=== PATIENT | male | born 1975 | race Caucasian/White ===

== ENCOUNTER 2023-07-22 00:59 | Day surgery (SDC) | payer BC, SELFPAY ==
[2023-05-25 14:47] VITALS: BMI 28.5
--- NOTE | 2023-06-08 15:26 | PM.HPGS ---
History of Present Illness History of Present Illness Consent: Risks, benefits, and alternatives have been discussed and questions answered. Patient agrees to proceed with procedure. Chief complaint: neoplasm screening Narrative: Moody Wilson is a 47 year old male referred for colon cancer screening. [facility] Past Medical History Medical History Acute left-sided low back pain without sciatica BMI 28.0-28.9,adult Dietary counseling and surveillance (01/03/19) Encounter for general adult medical examination without abnormal findings Encounter for other specified surgical aftercare Encounter for screening for diabetes mellitus Hair loss Herniated intervertebral disc of lumbar spine Hypothyroidism, unspecified Left inguinal hernia Left knee pain Mixed hyperlipidemia Screening for prostate cancer Family History Family History Father Hypertension Pancreatic cancer Mother No problems noted. Sibling No problems noted. Social History Social History Smoking status: Never smoker Second hand tobacco smoke exposure: No Alcohol intake: current Drinks per week: 6 Substance use: never Substance use type: does not use Lack of Transportation: No Lack of Food: Never True Current Housing: I Have Housing Concerned About Future Housing: No Difficulty Paying Gas/Electric Bills: No Difficulty Paying for Meds: No Currently Unemployed: No Education: Bachelor's Degree Difficulty w/ Childcare or Family Care: No Living arrangements: with family Occupation/Education: occupation Additional occupation/education comments: [employer]. Gender identity (if verbalized by the patient): Male Spiritual care concerns: No Meds Home Medications and Allergies Home Medications Medication Instructions Recorded Confirmed Type levothyroxine 75 mcg tablet 75 mcg PO DAILY #90 tabs 04/19/23 05/25/23 Rx (Synthroid) Allergies Allergy/AdvReac Type Severity Reaction Status Date / Time No Known Allergies Allergy Verified 03/01/23 07:53 Assessment and Plan Assessment and plan (1) Screen for colon cancer: Code(s): Z12.11 - Encounter for screening for malignant neoplasm of colon Status: Acute Assessment and Plan: Colonoscopy with possible biopsy or polypectomy or cautery or injection of substances.
[2023-07-09 13:15] VITALS: BMI 28.0
--- NOTE | 2023-07-21 15:13 | P.HP_ITS ---
History of Present Illness History of Present Illness Consent: Risks, benefits, and alternatives have been discussed and questions answered. Patient agrees to proceed with procedure. Chief complaint: neoplasm screening Narrative: Moody Wilson is a 47 year old male Was referred for colon cancer screening. Review of Systems Review of Systems: All systems reviewed & are unremarkable except as noted in HPI and below PMFSH Past Medical History Medical History Acute left-sided low back pain without sciatica BMI 28.0-28.9,adult Dietary counseling and surveillance (01/03/19) Encounter for general adult medical examination without abnormal findings Encounter for other specified surgical aftercare Encounter for screening for diabetes mellitus Hair loss Herniated intervertebral disc of lumbar spine Hypothyroidism, unspecified Left inguinal hernia Left knee pain Mixed hyperlipidemia Screening for prostate cancer Family History Family History Father Hypertension Pancreatic cancer Mother No problems noted. Sibling No problems noted. Social History Social History Smoking status: Never smoker Second hand tobacco smoke exposure: No Alcohol intake: current Drinks per week: 6 Substance use: never Substance use type: does not use Lack of Transportation: No Lack of Food: Never True Current Housing: I Have Housing Concerned About Future Housing: No Difficulty Paying Gas/Electric Bills: No Difficulty Paying for Meds: No Currently Unemployed: No Education: Bachelor's Degree Difficulty w/ Childcare or Family Care: No Living arrangements: with family Occupation/Education: occupation Additional occupation/education comments: [employer]. Gender identity (if verbalized by the patient): Male Spiritual care concerns: No Meds Home Medications and Allergies Home Medications Medication Instructions Recorded Confirmed Type levothyroxine 75 mcg tablet 75 mcg PO DAILY #90 tabs 07/20/23 07/22/23 Rx (Synthroid) Allergies Allergy/AdvReac Type Severity Reaction Status Date / Time No Known Allergies Allergy Verified 07/22/23 08:43 Exam Resp: Auscultation: clear to auscultation bilaterally Cardio: Rate: regular rate Rhythm: regular rhythm GI: GI Palp: Yes Soft to palpation and No Tenderness to palpation present (GI) Assessment and Plan Assessment and plan (1) Screen for colon cancer: Code(s): Z12.11 - Encounter for screening for malignant neoplasm of colon Status: Acute Assessment and Plan: Colonoscopy with possible biopsy or polypectomy or cautery or injection of substances.
[2023-07-22 08:44] VITALS: BP 128/72; PULSE 64; RESP 16; TEMP 36.3; O2SAT 99; BMI 29.3
[2023-07-22] MEDS: LACTATED RINGERS 1,000 ML 150 ML IV CONT (08:52)
--- NOTE | 2023-07-22 09:15 | WPDANESEPPF ---
Anes - Initial Pre Proc Eval Procedure: Operation Date: 07/22/23 10:00 Proposed Procedures p Screening Colonoscopy - Oscar Hernandez MD Date/Time: 07/22/23 09:15 Surgeon: Oscar Hernandez MD Pre Op Diagnosis: neoplasm screening Patient Data Age: 47 Gender: M Height: 1.83 m Weight: 98.1 kg Last Vital Signs Temp 97.4 F L 07/22/23 08:44 Pulse 64 07/22/23 08:44 Resp 16 07/22/23 08:44 BP 128/72 07/22/23 08:44 Pulse Ox 99 07/22/23 08:44 O2 Del Method Room Air 07/22/23 08:44 Allergies Allergy/AdvReac Type Severity Reaction Status Date / Time No Known Allergies Allergy Verified 07/22/23 08:43 Home Medications Medication Instructions Recorded Confirmed Type levothyroxine 75 mcg tablet 75 mcg PO DAILY #90 tabs 07/20/23 07/22/23 Rx (Synthroid) Patient hx anesthesia problems: none Family hx anesthesia problems: none Results Review: All pre-operative results and documents have been reviewed as part of the pre-operative evaluation. [facility] Past Medical History Medical History Acute left-sided low back pain without sciatica BMI 28.0-28.9,adult Dietary counseling and surveillance (01/03/19) Encounter for general adult medical examination without abnormal findings Encounter for other specified surgical aftercare Encounter for screening for diabetes mellitus Hair loss Herniated intervertebral disc of lumbar spine Hypothyroidism, unspecified Left inguinal hernia Left knee pain Mixed hyperlipidemia Screening for prostate cancer Family History Family History Father Hypertension Pancreatic cancer Mother No problems noted. Sibling No problems noted. Social History Social History Smoking status: Never smoker Second hand tobacco smoke exposure: No Alcohol intake: current Drinks per week: 6 Substance use: never Substance use type: does not use Lack of Transportation: No Lack of Food: Never True Current Housing: I Have Housing Concerned About Future Housing: No Difficulty Paying Gas/Electric Bills: No Difficulty Paying for Meds: No Currently Unemployed: No Education: Bachelor's Degree Difficulty w/ Childcare or Family Care: No Living arrangements: with family Occupation/Education: occupation Additional occupation/education comments: [employer]. Gender identity (if verbalized by the patient): Male Spiritual care concerns: No Anes - Eval Final PreProcedure Day of Procedure 07/22/23 09:15 Patient weight: normal Heart: regular rate and rhythm Lungs: clear to auscultation Airway: Mallampati scale class II Neurological: alert and oriented Last oral intake: >/= 8 hours ASA classification: II Emergent: no Anesthetic plan: proceed Anesthesia type and monitoring: general GIVS and standard monitoring Results Review: All pre-operative results and documents have been reviewed as part of the pre-operative evaluation. Informed Consent: The patient's anesthetic plan and its attendant risks and benefits were discussed with the patient/family/POA. Questions were solicited and answers provided to the satisfaction of the patient/family/POA.
[2023-07-22 10:19] VITALS: BP 96/66; PULSE 87; RESP 18; O2SAT 98
[2023-07-22 10:29] VITALS: BP 108/57; PULSE 80; RESP 18; O2SAT 100
[2023-07-22 10:39] VITALS: BP 109/74; PULSE 64; RESP 20; O2SAT 100
== END 2023-07-22 10:45 | disposition home or self-care (01) ==
PROVIDERS: PCP Family Medicine; Visit Provider Internal Medicine Gastroenterology
PROC: 0DJD8ZZ Inspection of Lower Intestinal Tract, Via Natural or Artificial Opening Endoscopic (ICD-10-PCS; CPT 45378; principal; 2023-07-22 10:00)
DX: Z12.11 Encounter for screening for malignant neoplasm of colon (principal); D12.3 Benign neoplasm of transverse colon; K64.8 Other hemorrhoids; E03.9 Hypothyroidism, unspecified; E78.5 Hyperlipidemia, unspecified
CPT/HCPCS: 45381; 45385; 88305; J2704; J7120